=== PATIENT | female | born 1950 | race Caucasian/White ===

== ENCOUNTER 2021-07-17 20:28 | Emergency (ER) | payer OTHER ==
[~2021-07-17] VITALS: Ht 154.9 cm; Wt 65.8 kg
[2021-07-17] MEDS ORDERED: BUSPIRONE 15 MG (21:03)
[2021-07-17] MEDS ORDERED: DOXEPIN 25 MG (21:04)
[2021-07-17] MEDS ORDERED: ATIVAN0.5 M1 (21:05)
[2021-07-17] MEDS ORDERED: [UNRECOGNIZED DRUG - OTHER] (21:07)
[2021-07-17] MEDS ORDERED: ESCITALOPRAM 20 MG (21:08)
[2021-07-17] MEDS ORDERED: LEVOTHYROXINE (21:09)
[2021-07-17] MEDS ORDERED: ULTRAM50 MG PO (22:22)
== END 2021-07-17 22:33 | disposition home or self-care (01) ==
LOC: ER 20:28
DX: M54.89 Other dorsalgia (principal)